=== PATIENT | female | born 1950 | race Caucasian/White ===

== ENCOUNTER 2021-05-23 13:37 | Outpatient (CLI) | payer MEDICARE | END 2021-05-23 13:38 | disposition home or self-care (01) | LOC: SCSMRI 13:37 | PROVIDERS: ATTEND Family Medicine | DX: S32.039G Unspecified fracture of third lumbar vertebra, subsequent encounter for fracture with delayed healing (principal); G89.4 Chronic pain syndrome; M47.816 Spondylosis without myelopathy or radiculopathy, lumbar region; M48.061 Spinal stenosis, lumbar region without neurogenic claudication; M43.16 Spondylolisthesis, lumbar region; M48.07 Spinal stenosis, lumbosacral region; M48.04 Spinal stenosis, thoracic region; S22.089A Unspecified fracture of T11-T12 vertebra, initial encounter for closed fracture; S32.019A Unspecified fracture of first lumbar vertebra, initial encounter for closed fracture; S32.029A Unspecified fracture of second lumbar vertebra, initial encounter for closed fracture | CPT/HCPCS: 72148 ==

== ENCOUNTER 2022-02-12 10:28 | Outpatient (CLI) | payer MEDICARE | END 2022-02-12 10:29 | disposition home or self-care (01) | LOC: BICRAD 10:28 | PROVIDERS: ATTEND Family Medicine | DX: S32.009G Unspecified fracture of unspecified lumbar vertebra, subsequent encounter for fracture with delayed healing (principal); M48.061 Spinal stenosis, lumbar region without neurogenic claudication; M47.816 Spondylosis without myelopathy or radiculopathy, lumbar region; M81.0 Age-related osteoporosis without current pathological fracture | CPT/HCPCS: 72072; 72100 ==

== ENCOUNTER 2024-05-16 12:09 | Inpatient (IN) | payer MEDICARE ==
[2024-05-16] MEDS ORDERED: Morphine 2 MG/ML VIAL ONE (12:38)
[2024-05-16 12:43] LABS: #Basophils 0.03 10x3/uL (0.0-0.2); %Basophils 0.2 % (0.0-1.0); %Eosinophils 0.3 % (0.0-10.0); %Lymphocytes 11.5 % (21.0-51.0); %Monocytes 5.5 % (0.0-10.0); %Neutrophils 82.2 % (42.0-75.0); Hematocrit 32.8 % (36.0-47.0); Mean Corpuscular HGB CONC 36.6 g/dL (32.0-36.0); Mean Corpuscular Hemoglobin 32.8 pg (27.0-31.0); Mean Corpuscular Volume 89.6 fL (78.0-98.0); Mean Platelet Volume 8.6 fL (7.4-10.4); Platelet Count 295 10x3/uL (130-400); RBC Distribution Width 11.3 % (11.5-14.5); Red Blood Cell (RBC) Count 3.66 mill/uL (4.20-5.40)
[2024-05-16 12:59] LABS: PTT 27.9 sec (22.9-36.1)
[2024-05-16 13:16] LABS: ALT (SGPT) 20 U/L (8-55); AST (SGOT) 45 U/L (5-34); Albumin 3.1 g/dL (3.4-4.8); Alkaline Phosphatase 90 U/L (40-110); Anion Gap 16 mmol/L (10-20); BUN (Urea Nitrogen) 6 mg/dL (9.8-20.1); Bilirubin, Total 0.5 mg/dL (0.2-1.2); Calc. Creatinine Clearance 0 mL/min (70-130); Carbon Dioxide 22 mmol/L (23-31); Chloride 88 mmol/L (98-107); Estimated GFR 96; Globulin 3.3 g/dL (2.4-3.5); Glucose 85 mg/dL (83-110); Protein, Total 6.4 g/dL (5.8-8.1); Sodium 122 mmol/L (136-145)
[2024-05-16] MEDS ORDERED: Ipratropium/Albuterol 3 ML NEB NEB PRN (14:05)
[2024-05-16] MEDS ORDERED: Ondansetron PF 4 MG/2 ML Vial IVP PRN (14:05)
[2024-05-16] MEDS ORDERED: Sodium Chloride 0.9% 1,000 ML IV SCH (14:15)
[2024-05-16] MEDS: Ketorolac Tromethamine 30 MG (1 mL) VIAL IVP SCH (15:39)
[2024-05-16 15:59] VITALS: BMI 18.4
[2024-05-16] MEDS: Acetaminophen 325 MG TAB PO SCH (17:38)
[2024-05-16 20:56] LABS: Anion Gap 14 mmol/L (10-20); BUN (Urea Nitrogen) 6 mg/dL (9.8-20.1); Calc. Creatinine Clearance 73 mL/min (70-130); Calcium 8.4 mg/dL (7.8-10.44); Carbon Dioxide 25 mmol/L (23-31); Chloride 86 mmol/L (98-107); Estimated GFR 98; Glucose 121 mg/dL (83-110); Potassium 3.6 mmol/L (3.5-5.1); Sodium 121 mmol/L (136-145)
[2024-05-16] MEDS: Famotidine/PF 20 mg/2ml Vial SLOW IVP SCH (21:11)
[2024-05-16] MEDS: Gabapentin 300 MG CAP PO SCH (21:12)
[2024-05-16] MEDS: Sodium Chloride 1 GM TAB PO SCH (21:57)
[2024-05-16] MEDS ORDERED: Sodium Chloride 1 GM TAB PO SCH (22:00)
[2024-05-17] MEDS: Ketorolac Tromethamine 30 MG (1 mL) VIAL IVP SCH (00:07)
[2024-05-17] MEDS: Sodium Chloride 0.9% 1,000 ML IV SCH (00:07)
[2024-05-17] MEDS: Morphine 2 MG/ML VIAL SLOW IVP PRN (04:31)
[2024-05-17 06:56] LABS: #Basophils 0.03 10x3/uL (0.0-0.2); %Basophils 0.4 % (0.0-1.0); %Eosinophils 0.4 % (0.0-10.0); %Lymphocytes 16.5 % (21.0-51.0); %Monocytes 6.9 % (0.0-10.0); %Neutrophils 75.5 % (42.0-75.0); Hematocrit 31.6 % (36.0-47.0); Hemoglobin 11.5 g/dL (12.0-16.0); Mean Corpuscular HGB CONC 36.4 g/dL (32.0-36.0); Mean Corpuscular Hemoglobin 32.3 pg (27.0-31.0); Mean Corpuscular Volume 88.8 fL (78.0-98.0); Mean Platelet Volume 9.3 fL (7.4-10.4); Platelet Count 254 10x3/uL (130-400); RBC Distribution Width 11.2 % (11.5-14.5); Red Blood Cell (RBC) Count 3.56 mill/uL (4.20-5.40)
[2024-05-17 07:03] LABS: Prothrombin Time 12.8 sec (12.0-14.7)
[2024-05-17 07:04] LABS: PTT 33.4 sec (22.9-36.1)
[2024-05-17 07:18] LABS: Hemoglobin A1c 4.7 % (4.0-6.0)
[2024-05-17 07:25] LABS: ALT (SGPT) 19 U/L (8-55); AST (SGOT) 39 U/L (5-34); Albumin 2.9 g/dL (3.4-4.8); Alkaline Phosphatase 96 U/L (40-110); Bilirubin, Direct 0.3 mg/dL (0.1-0.3); Cardiac Risk 1.6 (Less than 4.5); Cholesterol 144 mg/dl (< 200 Desired); HDL Cholesterol 92 mg/dL (>60 Neg Risk); LDL Cholesterol, Calculated 45 mg/dL; Triglycerides 35 mg/dL (Less than 150)
[2024-05-17 08:07] LABS: Anion Gap 15 mmol/L (10-20); BUN (Urea Nitrogen) 6 mg/dL (9.8-20.1); Calc. Creatinine Clearance 76 mL/min (70-130); Calcium 8.4 mg/dL (7.8-10.44); Carbon Dioxide 23 mmol/L (23-31); Chloride 86 mmol/L (98-107); Estimated GFR 99; Glucose 83 mg/dL (83-110); Magnesium 1.2 mg/dL (1.6-2.6); Potassium 3.6 mmol/L (3.5-5.1); Sodium 120 mmol/L (136-145)
[2024-05-17] MEDS: Magnesium Sulfate In Water 4 GM in Premix 1 BAG IVPB SCH (09:44)
[2024-05-17] MEDS: Thiamine 100 MG TAB PO SCH (09:44)
[2024-05-17] MEDS: Folic Acid 1 MG TAB PO SCH (09:44)
[2024-05-17] MEDS: Pantoprazole DR 40 MG TAB PO SCH (09:45)
[2024-05-17] MEDS: Sodium Chloride 1 GM TAB PO SCH (09:45)
[2024-05-17] MEDS: Amlodipine 5 MG TAB PO SCH (09:45)
[2024-05-17] MEDS: Admixture Fee 1 EACH in Sodium Chloride 3% 100 ML IVPB SCH (11:15)
[2024-05-17] MEDS: Potassium Chloride 20 MEQ in Premix 1 BAG IVPB SCH (11:39)
[2024-05-17 13:45] LABS: Albumin 3.1 g/dL (3.4-4.8); Anion Gap 12 mmol/L (10-20); BUN (Urea Nitrogen) 5 mg/dL (9.8-20.1); BUN/Creatinine Ratio 10.64; Calc. Creatinine Clearance 76 mL/min (70-130); Calcium 8.5 mg/dL (7.8-10.44); Carbon Dioxide 27 mmol/L (23-31); Chloride 85 mmol/L (98-107); Estimated GFR 99; Glucose 96 mg/dL (83-110); Potassium 3.5 mmol/L (3.5-5.1); Sodium 120 mmol/L (136-145)
[2024-05-17] MEDS ORDERED: fentaNYL PF 100 MCG/2 ML SYRINGE ONE (14:05)
[2024-05-17] MEDS ORDERED: Lidocaine 1% PF 5 ML VIAL ONE (14:06)
[2024-05-17] MEDS ORDERED: Rocuronium Bromide 10 MG/ML (10ML VIAL) ONE (14:06)
[2024-05-17] MEDS ORDERED: PROPOFOL 20 ML ONE (14:06)
[2024-05-17] MEDS ORDERED: CEFAZOLIN 2 GM VIAL ONE (14:19)
[2024-05-17] MEDS ORDERED: Sodium Chloride 0.9% 100 ML ONE (14:22)
[2024-05-17] MEDS ORDERED: SUCCINYLCHOLINE/SOD CL,ISO/PF 200 MG/10 ML SYRINGE FS ONE (14:48)
[2024-05-17] MEDS ORDERED: Ondansetron PF 4 MG/2 ML Vial ONE (14:48)
[2024-05-17] MEDS ORDERED: Glycopyrrolate 0.2 MG/ML 5 ML SYRINGE ONE (14:48)
[2024-05-17] MEDS ORDERED: Ketorolac Tromethamine 30 MG (1 mL) VIAL ONE (15:19)
[2024-05-17] MEDS ORDERED: Dexamethasone 20 MG/5 ML VIAL ONE (15:19)
[2024-05-17] MEDS ORDERED: PHENYLEPHRINE-NS 100 MCG/ML 10 ML SYRINGE ONE (15:54)
[2024-05-17] MEDS ORDERED: SUGAMMADEX SODIUM 200 MG/2 ML VIAL ONE (16:17)
[2024-05-17 16:26] VITALS: BMI 18.4
[2024-05-17] MEDS ORDERED: fentaNYL 50 mcg/mL 1 mL Vial ONE ×2 (17:00→17:48)
[2024-05-17] MEDS: ADMIXTURE FEE IVPB SCH (19:07)
[2024-05-17] MEDS: IN SODIUM CHLORIDE IVPB SCH (19:07)
[2024-05-17] MEDS: Potassium Phosphate 30 MMOL in Sodium Chloride 0.9% 250 ML 250 ML IVPB SCH ×2 (19:10→22:00)
[2024-05-17] MEDS: Sodium Chloride 3% 200 ML IVPB SCH (19:10)
[2024-05-17] MEDS: CEFAZOLIN 2 GM in Sodium Chloride 0.9% 100 ML IVPB SCH (21:16)
[2024-05-17 21:18] LABS: Anion Gap 15 mmol/L (10-20); BUN (Urea Nitrogen) 4 mg/dL (9.8-20.1); Calc. Creatinine Clearance 81 mL/min (70-130); Calcium 7.6 mg/dL (7.8-10.44); Carbon Dioxide 20 mmol/L (23-31); Chloride 89 mmol/L (98-107); Estimated GFR 100; Glucose 153 mg/dL (83-110); Potassium 3.2 mmol/L (3.5-5.1); Sodium 121 mmol/L (136-145)
[2024-05-18 06:20] LABS: #Basophils Less than 0.03 10x3/uL (0.0-0.2); #Eosinphils Less than 0.03 10x3/uL (0.0-0.7); %Basophils 0.1 % (0.0-1.0); %Monocytes 3.1 % (0.0-10.0); %Neutrophils 90.3 % (42.0-75.0); Hematocrit 24.7 % (36.0-47.0); Mean Corpuscular HGB CONC 36.4 g/dL (32.0-36.0); Mean Corpuscular Hemoglobin 33.2 pg (27.0-31.0); Mean Corpuscular Volume 91.1 fL (78.0-98.0); Mean Platelet Volume 10.1 fL (7.4-10.4); Platelet Count 251 10x3/uL (130-400); RBC Distribution Width 11.5 % (11.5-14.5); Red Blood Cell (RBC) Count 2.71 mill/uL (4.20-5.40)
[2024-05-18 06:39] LABS: Anion Gap 16 mmol/L (10-20); BUN (Urea Nitrogen) 6 mg/dL (9.8-20.1); Calc. Creatinine Clearance 69 mL/min (70-130); Calcium 7.7 mg/dL (7.8-10.44); Carbon Dioxide 18 mmol/L (23-31); Chloride 95 mmol/L (98-107); Estimated GFR 96; Glucose 112 mg/dL (83-110); Magnesium 1.8 mg/dL (1.6-2.6); Phosphorus 4.7 mg/dL (2.3-4.7); Potassium 4.4 mmol/L (3.5-5.1); Sodium 125 mmol/L (136-145)
[2024-05-18] MEDS: Sodium Bicarbonate Tab 325 MG TAB PO SCH (08:41)
[2024-05-18] MEDS: Magnesium Oxide 400 MG TAB PO SCH (08:41)
[2024-05-18] MEDS: Aspirin 81 mg Enteric Coated Tablet PO SCH ×2 (09:58→21:12)
[2024-05-19 05:52] LABS: #Basophils Less than 0.03 10x3/uL (0.0-0.2); #Eosinphils Less than 0.03 10x3/uL (0.0-0.7); %Basophils 0.1 % (0.0-1.0); %Eosinophils 0.1 % (0.0-10.0); %Lymphocytes 20.3 % (21.0-51.0); %Monocytes 9.6 % (0.0-10.0); %Neutrophils 69.5 % (42.0-75.0); Hematocrit 18.1 % (36.0-47.0); Hemoglobin 6.4 g/dL (12.0-16.0); Mean Corpuscular HGB CONC 35.4 g/dL (32.0-36.0); Mean Corpuscular Hemoglobin 32.3 pg (27.0-31.0); Mean Corpuscular Volume 91.4 fL (78.0-98.0); Mean Platelet Volume 9.5 fL (7.4-10.4); Platelet Count 213 10x3/uL (130-400); RBC Distribution Width 11.7 % (11.5-14.5); Red Blood Cell (RBC) Count 1.98 mill/uL (4.20-5.40)
[2024-05-19 06:13] LABS: Anion Gap 9 mmol/L (10-20); BUN (Urea Nitrogen) 17 mg/dL (9.8-20.1); Calc. Creatinine Clearance 46 mL/min (70-130); Calcium 8.1 mg/dL (7.8-10.44); Carbon Dioxide 24 mmol/L (23-31); Chloride 94 mmol/L (98-107); Estimated GFR 79; Glucose 95 mg/dL (83-110); Magnesium 1.7 mg/dL (1.6-2.6); Potassium 4.3 mmol/L (3.5-5.1); Sodium 123 mmol/L (136-145)
[2024-05-19] MEDS: Albumin 25% 25 GM (100 mL) BOT IVPB SCH (06:45)
[2024-05-19] MEDS: Magnesium Sulfate In Water 4 GM in Premix 1 BAG IVPB SCH (08:10)
[2024-05-19] MEDS: Multivitamin W/ Minerals 1 TAB PO SCH (09:14)
[2024-05-19 17:33] LABS: Anion Gap 16 mmol/L (10-20); BUN (Urea Nitrogen) 20 mg/dL (9.8-20.1); Calc. Creatinine Clearance 41 mL/min (70-130); Calcium 9.2 mg/dL (7.8-10.44); Carbon Dioxide 23 mmol/L (23-31); Chloride 94 mmol/L (98-107); Estimated GFR 70; Glucose 103 mg/dL (83-110); Potassium 3.8 mmol/L (3.5-5.1); Sodium 129 mmol/L (136-145)
[2024-05-19 18:34] LABS: Hematocrit 26.3 % (36.0-47.0)
[2024-05-19] MEDS: Lidocaine 4% Patch TD SCH (21:13)
[2024-05-20 06:40] LABS: #Basophils Less than 0.03 10x3/uL (0.0-0.2); %Basophils 0.2 % (0.0-1.0); %Eosinophils 3.1 % (0.0-10.0); %Lymphocytes 23.3 % (21.0-51.0); %Monocytes 8.3 % (0.0-10.0); %Neutrophils 64.7 % (42.0-75.0); Hematocrit 22.1 % (36.0-47.0); Hemoglobin 7.7 g/dL (12.0-16.0); Mean Corpuscular HGB CONC 34.8 g/dL (32.0-36.0); Mean Corpuscular Volume 89.1 fL (78.0-98.0); Mean Platelet Volume 9.6 fL (7.4-10.4); Platelet Count 216 10x3/uL (130-400); RBC Distribution Width 16.8 % (11.5-14.5); Red Blood Cell (RBC) Count 2.48 mill/uL (4.20-5.40)
[2024-05-20 07:10] LABS: Anion Gap 9 mmol/L (10-20); BUN (Urea Nitrogen) 22 mg/dL (9.8-20.1); Calc. Creatinine Clearance 54 mL/min (70-130); Calcium 8.5 mg/dL (7.8-10.44); Carbon Dioxide 28 mmol/L (23-31); Chloride 94 mmol/L (98-107); Estimated GFR 91; Glucose 74 mg/dL (83-110); Potassium 4.3 mmol/L (3.5-5.1); Sodium 127 mmol/L (136-145)
[2024-05-20] MEDS: Transdermal Patch Removal TOP SCH (12:49)
[2024-05-20 14:46] LABS: Phosphorus 1.2 mg/dL (2.3-4.7)
[2024-05-20 16:47] LABS: Hematocrit 25.2 % (36.0-47.0); Hemoglobin 8.8 g/dL (12.0-16.0)
[2024-05-20] MEDS: Sodium Phosphate 30 MMOL in Sodium Chloride 0.9% 250 ML 250 ML IVPB SCH (18:15)
[2024-05-20] MEDS: Senokot S 8.6-50 MG TAB PO SCH (20:59)
[2024-05-21 05:41] LABS: #Basophils Less than 0.03 10x3/uL (0.0-0.2); %Basophils 0.3 % (0.0-1.0); %Eosinophils 4.5 % (0.0-10.0); %Lymphocytes 25.5 % (21.0-51.0); %Monocytes 11.4 % (0.0-10.0); Hematocrit 22.3 % (36.0-47.0); Hemoglobin 7.6 g/dL (12.0-16.0); Mean Corpuscular HGB CONC 34.1 g/dL (32.0-36.0); Mean Corpuscular Hemoglobin 30.3 pg (27.0-31.0); Mean Corpuscular Volume 88.8 fL (78.0-98.0); Platelet Count 238 10x3/uL (130-400); RBC Distribution Width 16.8 % (11.5-14.5); Red Blood Cell (RBC) Count 2.51 mill/uL (4.20-5.40)
[2024-05-21 06:26] LABS: Albumin 2.3 g/dL (3.4-4.8); Anion Gap 12 mmol/L (10-20); BUN (Urea Nitrogen) 21 mg/dL (9.8-20.1); BUN/Creatinine Ratio 36.84; Calc. Creatinine Clearance 63 mL/min (70-130); Calcium 8.5 mg/dL (7.8-10.44); Carbon Dioxide 29 mmol/L (23-31); Chloride 94 mmol/L (98-107); Estimated GFR 94; Glucose 80 mg/dL (83-110); Magnesium 1.5 mg/dL (1.6-2.6); Phosphorus 3.2 mg/dL (2.3-4.7); Potassium 4.3 mmol/L (3.5-5.1); Sodium 131 mmol/L (136-145)
[2024-05-21 07:39] LABS: Iron 17 ug/dL (50-170); Iron Binding Capacity, Total 155 mcg/dL (265-497)
[2024-05-21] MEDS: Magnesium Sulfate In Water 4 GM in Premix 1 BAG IVPB SCH (08:51)
[2024-05-21 15:14] VITALS: BP 124/82; TEMP 97.7
== END 2024-05-21 18:16 | disposition home or self-care (01) | DRG 522 ==
LOC: ERS 12:09 → SJJU 15:15
PROVIDERS: ADMIT Surgery; ATTEND Surgery
PROC: 0SRR0J9 Replacement of Right Hip Joint, Femoral Surface with Synthetic Substitute, Cemented, Open Approach (ICD-10-PCS; principal; 2024-05-17)
PROC: 30233K1 Transfusion of Nonautologous Frozen Plasma into Peripheral Vein, Percutaneous Approach (ICD-10-PCS; 2024-05-19)
PROC: 30233N1 Transfusion of Nonautologous Red Blood Cells into Peripheral Vein, Percutaneous Approach (ICD-10-PCS; 2024-05-19)
DX: S72.011A Unspecified intracapsular fracture of right femur, initial encounter for closed fracture (principal); R64 Cachexia; Z68.1 Body mass index [BMI] 19.9 or less, adult; D62 Acute posthemorrhagic anemia; E22.2 Syndrome of inappropriate secretion of antidiuretic hormone; E44.0 Moderate protein-calorie malnutrition; W18.2XXA Fall in (into) shower or empty bathtub, initial encounter; I10 Essential (primary) hypertension; M19.90 Unspecified osteoarthritis, unspecified site; Z96.662 Presence of left artificial ankle joint; F10.10 Alcohol abuse, uncomplicated; K21.9 Gastro-esophageal reflux disease without esophagitis; G89.29 Other chronic pain; E87.6 Hypokalemia; E83.42 Hypomagnesemia; Z96.661 Presence of right artificial ankle joint; R26.89 Other abnormalities of gait and mobility; D72.829 Elevated white blood cell count, unspecified; E83.39 Other disorders of phosphorus metabolism; E83.51 Hypocalcemia; I95.9 Hypotension, unspecified; M81.0 Age-related osteoporosis without current pathological fracture; Y90.3 Blood alcohol level of 60-79 mg/100 ml; Y93.89 Activity, other specified; Y92.091 Bathroom in other non-institutional residence as the place of occurrence of the external cause; Z79.899 Other long term (current) drug therapy; Z90.710 Acquired absence of both cervix and uterus
CPT/HCPCS: 36415; 36430; 70450; 71045; 72170; 76705; 80048; 80053; 80061; 80069; 80076; 80307; 82306; 82533; 82728; 83036; 83540; 83550; 83735; 83930; 83935; 84100; 84300; 84443; 85025; 85610; 85730; 86850; 86900; 86901; 93005; 96374; C1713; C1776; J1100; J1885; J2272; J2405; J2704; J3010; J3475; J3480; J3490; J7030; J7050; J7131; P9016; P9047; P9059

== ENCOUNTER 2024-06-22 20:44 | Inpatient (IN) | payer MEDICARE ==
[~2024-06-22 20:44] MED LIST: Iopamidol-370 76% 500 ML MDV (1 ML CHARGE) ONE
[2024-06-22 22:45] LABS: #Basophils Less than 0.03 10x3/uL (0.0-0.2); #Eosinphils Less than 0.03 10x3/uL (0.0-0.7); %Basophils 0.2 % (0.0-1.0); %Eosinophils 0.2 % (0.0-10.0); %Lymphocytes 11.8 % (21.0-51.0); %Monocytes 9.3 % (0.0-10.0); %Neutrophils 78.1 % (42.0-75.0); Hematocrit 21.9 % (36.0-47.0); Hemoglobin 7.7 g/dL (12.0-16.0); Mean Corpuscular HGB CONC 35.2 g/dL (32.0-36.0); Mean Corpuscular Hemoglobin 30.4 pg (27.0-31.0); Mean Corpuscular Volume 86.6 fL (78.0-98.0); Mean Platelet Volume 8.3 fL (7.4-10.4); Platelet Count 262 10x3/uL (130-400); RBC Distribution Width 13.9 % (11.5-14.5); Red Blood Cell (RBC) Count 2.53 mill/uL (4.20-5.40)
[2024-06-22 23:14] LABS: Troponin I Less than 0.010 ng/mL (< 0.028)
[2024-06-22 23:27] LABS: ALT (SGPT) 13 U/L (8-55); AST (SGOT) 36 U/L (5-34); Alkaline Phosphatase 91 U/L (40-110); Anion Gap 12 mmol/L (10-20); BUN (Urea Nitrogen) 6 mg/dL (9.8-20.1); Calc. Creatinine Clearance 0 mL/min (70-130); Calcium 9.1 mg/dL (7.8-10.44); Carbon Dioxide 25 mmol/L (23-31); Chloride 81 mmol/L (98-107); Estimated GFR 96; Globulin 3.6 g/dL (2.4-3.5); Glucose 104 mg/dL (83-110); Potassium 4.3 mmol/L (3.5-5.1); Protein, Total 6.6 g/dL (5.8-8.1); Sodium 114 mmol/L (136-145)
[2024-06-22] MEDS ORDERED: Morphine 4 MG/ML VIAL ONE (23:41)
[2024-06-22] MEDS ORDERED: Ondansetron PF 4 MG/2 ML Vial ONE (23:41)
[2024-06-23] MEDS ORDERED: Furosemide 20 MG (2 mL) VIAL ONE (00:10)
[2024-06-23] MEDS ORDERED: fentaNYL 50 mcg/mL 1 mL Vial ONE (01:11)
[2024-06-23] MEDS ORDERED: Acetaminophen 325 MG TAB PO PRN (01:27)
[2024-06-23] MEDS ORDERED: Acetaminophen 650 MG Suppository PR PRN (01:27)
[2024-06-23 01:39] LABS: Bacteria/HPF None Seen HPF (None Seen); Bilirubin Negative (Negative); Blood, Urine Negative (Negative); CAUTI Indications for Culture Fever or rigors; Clarity Turbid (Clear); Glucose, Urine (Dipstick) Normal (Negative); Ketone, Urine Trace mg/dL (Negative); Leukocyte Negative Leu/uL (Negative); Nitrite Negative (Negative); Protein, Urine (Dipstick) Negative (Neg-Trace); RBC/HPF 0-3 HPF (0-3); Specific Gravity, Urine 1.011 (1.002-1.036); Squamous Epithelial 0-3 HPF (0-3); Urobilinogen Normal mg/dL (Less than 2); pH, Urine 7.5 (5.0-9.0)
[2024-06-23 01:40] LABS: Urine Culture Reflex No No
[2024-06-23 02:04] LABS: Influenza A by NAA Not Detected (NotDetected); Influenza B by NAA Not Detected (NotDetected); SARS-CoV-2 NAA Rapid Test Not Detected (NotDetected)
[2024-06-23 03:21] LABS: Magnesium 1.5 mg/dL (1.6-2.6); Phosphorus 2.3 mg/dL (2.3-4.7)
[2024-06-23] MEDS ORDERED: traMADol HCl 50 MG TAB ONE ×2 (04:01→13:36)
[2024-06-23] MEDS: traMADol HCl 50 MG TAB PO PRN (04:04)
[2024-06-23 04:27] LABS: #Basophils Less than 0.03 10x3/uL (0.0-0.2); #Eosinphils Less than 0.03 10x3/uL (0.0-0.7); %Basophils 0.1 % (0.0-1.0); %Eosinophils 0.1 % (0.0-10.0); %Lymphocytes 13.6 % (21.0-51.0); %Monocytes 9.1 % (0.0-10.0); %Neutrophils 76.8 % (42.0-75.0); Hematocrit 24.7 % (36.0-47.0); Hemoglobin 9.1 g/dL (12.0-16.0); Mean Corpuscular HGB CONC 36.8 g/dL (32.0-36.0); Mean Corpuscular Hemoglobin 30.2 pg (27.0-31.0); Mean Corpuscular Volume 82.1 fL (78.0-98.0); Mean Platelet Volume 8.8 fL (7.4-10.4); Platelet Count 305 10x3/uL (130-400); RBC Distribution Width 13.5 % (11.5-14.5); Red Blood Cell (RBC) Count 3.01 mill/uL (4.20-5.40)
[2024-06-23 04:49] LABS: Chloride 79 mmol/L (98-107); Potassium 3.7 mmol/L (3.5-5.1)
[2024-06-23 04:50] LABS: Calcium 9.4 mg/dL (7.8-10.44)
[2024-06-23 04:51] LABS: Glucose 111 mg/dL (83-110)
[2024-06-23 04:52] LABS: Anion Gap 14 mmol/L (10-20); Carbon Dioxide 24 mmol/L (23-31)
[2024-06-23 04:54] LABS: Calc. Creatinine Clearance 0 mL/min (70-130); Estimated GFR 95
[2024-06-23 04:55] LABS: BUN (Urea Nitrogen) 6 mg/dL (9.8-20.1)
[2024-06-23 05:13] LABS: Sodium 113 mmol/L (136-145)
[2024-06-23 05:54] VITALS: BMI 18.1
[2024-06-23] MEDS ORDERED: Admixture Fee 1 EACH in Sodium Chloride 3% 100 ML IVPB SCH (09:00)
[2024-06-23] MEDS ORDERED: Enoxaparin 40 MG (0.4 mL) SYRINGE ONE (09:21)
[2024-06-23 09:26] LABS: Anion Gap 14 mmol/L (10-20); BUN (Urea Nitrogen) 7 mg/dL (9.8-20.1); Calc. Creatinine Clearance 69 mL/min (70-130); Calcium 9.4 mg/dL (7.8-10.44); Carbon Dioxide 25 mmol/L (23-31); Chloride 78 mmol/L (98-107); Estimated GFR 95; Glucose 103 mg/dL (83-110); Potassium 3.9 mmol/L (3.5-5.1); Sodium 113 mmol/L (136-145)
[2024-06-23] MEDS: Sodium Chloride 3% 100 ML in Admixture Fee 1 EACH IVPB SCH (10:10)
[2024-06-23] MEDS: Enoxaparin 40 MG (0.4 mL) SYRINGE SC SCH (10:11)
[2024-06-23] MEDS: Magnesium Sulfate In Water 4 GM in Premix 1 BAG IVPB SCH (11:08)
[2024-06-23] MEDS: Sodium Chloride 1 GM TAB PO SCH ×2 (11:14→17:21)
[2024-06-23 11:46] LABS: Anion Gap 14 mmol/L (10-20); BUN (Urea Nitrogen) 6 mg/dL (9.8-20.1); Calc. Creatinine Clearance 74 mL/min (70-130); Carbon Dioxide 22 mmol/L (23-31); Chloride 81 mmol/L (98-107); Estimated GFR 96; Glucose 97 mg/dL (83-110); Potassium 3.5 mmol/L (3.5-5.1); Sodium 113 mmol/L (136-145)
[2024-06-23 16:57] LABS: Anion Gap 14 mmol/L (10-20); BUN (Urea Nitrogen) 6 mg/dL (9.8-20.1); Calc. Creatinine Clearance 75 mL/min (70-130); Calcium 8.7 mg/dL (7.8-10.44); Carbon Dioxide 25 mmol/L (23-31); Chloride 79 mmol/L (98-107); Estimated GFR 97; Glucose 113 mg/dL (83-110); Potassium 3.7 mmol/L (3.5-5.1); Sodium 114 mmol/L (136-145)
[2024-06-23] MEDS ORDERED: Lisinopril 20 MG TAB ONE (17:18)
[2024-06-23] MEDS ORDERED: Metoprolol Tartrate 50 MG TAB ONE (17:18)
[2024-06-23] MEDS: Lisinopril 20 MG TAB PO SCH (17:58)
[2024-06-23] MEDS: Magnesium Oxide 400 MG TAB PO SCH (19:36)
[2024-06-23] MEDS: ADMIXTURE FEE IVPB SCH (19:36)
[2024-06-23] MEDS: IN SODIUM CHLORIDE IVPB SCH (19:36)
[2024-06-23] MEDS: Sodium Chloride 3% 200 ML IVPB SCH (19:37)
[2024-06-23 19:52] LABS: Anion Gap 12 mmol/L (10-20); BUN (Urea Nitrogen) 7 mg/dL (9.8-20.1); Calc. Creatinine Clearance 77 mL/min (70-130); Calcium 8.6 mg/dL (7.8-10.44); Carbon Dioxide 25 mmol/L (23-31); Chloride 79 mmol/L (98-107); Estimated GFR 97; Glucose 128 mg/dL (83-110); Potassium 3.3 mmol/L (3.5-5.1); Sodium 113 mmol/L (136-145)
[2024-06-23] MEDS: Potassium Chloride 20 MEQ TAB PO SCH (21:23)
[2024-06-24 00:08] LABS: Anion Gap 14 mmol/L (10-20); BUN (Urea Nitrogen) 7 mg/dL (9.8-20.1); Calc. Creatinine Clearance 82 mL/min (70-130); Calcium 8.6 mg/dL (7.8-10.44); Carbon Dioxide 21 mmol/L (23-31); Chloride 83 mmol/L (98-107); Estimated GFR 99; Glucose 117 mg/dL (83-110); Sodium 115 mmol/L (136-145)
[2024-06-24 01:21] LABS: Magnesium 2.1 mg/dL (1.6-2.6)
[2024-06-24] MEDS: Potassium Chloride 20 MEQ TAB PO SCH (02:15)
[2024-06-24] MEDS: Potassium Chloride 10 MEQ TAB PO SCH ×2 (02:42→11:01)
[2024-06-24 05:13] LABS: Anion Gap 10 mmol/L (10-20); BUN (Urea Nitrogen) 8 mg/dL (9.8-20.1); Calc. Creatinine Clearance 80 mL/min (70-130); Calcium 8.7 mg/dL (7.8-10.44); Carbon Dioxide 26 mmol/L (23-31); Chloride 83 mmol/L (98-107); Estimated GFR 98; Glucose 115 mg/dL (83-110); Potassium 3.4 mmol/L (3.5-5.1); Sodium 116 mmol/L (136-145)
[2024-06-24 06:50] LABS: Anion Gap 9 mmol/L (10-20); BUN (Urea Nitrogen) 8 mg/dL (9.8-20.1); Calc. Creatinine Clearance 82 mL/min (70-130); Calcium 8.7 mg/dL (7.8-10.44); Carbon Dioxide 28 mmol/L (23-31); Chloride 84 mmol/L (98-107); Estimated GFR 99; Glucose 113 mg/dL (83-110); Phosphorus 2.6 mg/dL (2.3-4.7); Sodium 117 mmol/L (136-145)
[2024-06-24] MEDS ORDERED: Potassium Chloride 20 MEQ TAB PO SCH (08:00)
[2024-06-24] MEDS: Prochlorperazine Edisylate 10 MG in Sodium Chloride 0.9% 50 ML IVPB SCH (10:23)
[2024-06-24] MEDS: Lisinopril 20 MG TAB PO SCH (11:01)
[2024-06-24] MEDS: Amlodipine 5 MG TAB PO SCH (11:09)
[2024-06-24 12:02] LABS: Anion Gap 13 mmol/L (10-20); BUN (Urea Nitrogen) 8 mg/dL (9.8-20.1); Calc. Creatinine Clearance 80 mL/min (70-130); Carbon Dioxide 24 mmol/L (23-31); Chloride 84 mmol/L (98-107); Estimated GFR 98; Glucose 122 mg/dL (83-110); Potassium 3.8 mmol/L (3.5-5.1); Sodium 117 mmol/L (136-145)
[2024-06-24 12:33] VITALS: BMI 18.1
[2024-06-24] MEDS: Prochlorperazine Maleate 5 MG TAB PO SCH (14:37)
[2024-06-24] MEDS: traMADol HCl 50 MG TAB PO PRN (15:11)
[2024-06-24] MEDS: Sodium Chloride 3% 500 ML IVPB SCH (15:41)
[2024-06-24] MEDS: Potassium Chloride 20 MEQ in Premix 1 BAG IVPB SCH (17:28)
[2024-06-24 17:33] LABS: Anion Gap 12 mmol/L (10-20); BUN (Urea Nitrogen) 9 mg/dL (9.8-20.1); Calc. Creatinine Clearance 80 mL/min (70-130); Carbon Dioxide 24 mmol/L (23-31); Chloride 86 mmol/L (98-107); Estimated GFR 98; Glucose 134 mg/dL (83-110); Potassium 3.3 mmol/L (3.5-5.1); Sodium 119 mmol/L (136-145)
[2024-06-24 20:20] LABS: Anion Gap 11 mmol/L (10-20); BUN (Urea Nitrogen) 9 mg/dL (9.8-20.1); Calc. Creatinine Clearance 70 mL/min (70-130); Carbon Dioxide 24 mmol/L (23-31); Chloride 88 mmol/L (98-107); Estimated GFR 95; Glucose 164 mg/dL (83-110); Potassium 3.5 mmol/L (3.5-5.1); Sodium 119 mmol/L (136-145)
[2024-06-24 23:30] LABS: Anion Gap 12 mmol/L (10-20); BUN (Urea Nitrogen) 9 mg/dL (9.8-20.1); Calc. Creatinine Clearance 75 mL/min (70-130); Calcium 8.8 mg/dL (7.8-10.44); Carbon Dioxide 24 mmol/L (23-31); Chloride 91 mmol/L (98-107); Estimated GFR 97; Glucose 154 mg/dL (83-110); Potassium 3.7 mmol/L (3.5-5.1); Sodium 123 mmol/L (136-145)
[2024-06-25] MEDS: Prochlorperazine Maleate 5 MG TAB PO PRN (04:20)
[2024-06-25] MEDS: hydrALAZINE 20 MG/ML VIAL SLOW IVP PRN (04:57)
[2024-06-25 07:17] LABS: Albumin 2.8 g/dL (3.4-4.8); Anion Gap 14 mmol/L (10-20); BUN (Urea Nitrogen) 9 mg/dL (9.8-20.1); Calc. Creatinine Clearance 85 mL/min (70-130); Calcium 8.9 mg/dL (7.8-10.44); Carbon Dioxide 27 mmol/L (23-31); Chloride 88 mmol/L (98-107); Estimated GFR 100; Glucose 155 mg/dL (83-110); Phosphorus 1.8 mg/dL (2.3-4.7); Sodium 126 mmol/L (136-145)
[2024-06-25] MEDS ORDERED: Potassium Phosphate 30 MMOL in Sodium Chloride 0.9% 250 ML 250 ML IVPB SCH (08:00)
[2024-06-25 08:20] LABS: Magnesium 1.7 mg/dL (1.6-2.6)
[2024-06-25] MEDS: Thiamine 100 MG TAB PO SCH (08:49)
[2024-06-25] MEDS: Amlodipine 5 MG TAB PO SCH (08:49)
[2024-06-25] MEDS: Potassium Chloride 20 MEQ TAB PO SCH (08:50)
[2024-06-25] MEDS: Magnesium 2 GM/50 ML(in water) 2 GM in Premix 1 BAG IVPB SCH (08:52)
[2024-06-25] MEDS: Potassium Phosphate 30 MMOL in Sodium Chloride 0.9% 250 ML 250 ML IVPB SCH (10:26)
[2024-06-25] MEDS ORDERED: Iopamidol 370 76% 100 ML VIAL ONE (14:13)
[2024-06-25] MEDS: Dextrose 5%-Lactated Ringers 1,000 ML IV SCH (17:34)
[2024-06-25 17:36] LABS: Albumin 2.7 g/dL (3.4-4.8); Anion Gap 16 mmol/L (10-20); BUN (Urea Nitrogen) 17 mg/dL (9.8-20.1); BUN/Creatinine Ratio 36.17; Calc. Creatinine Clearance 82 mL/min (70-130); Calcium 9.1 mg/dL (7.8-10.44); Carbon Dioxide 30 mmol/L (23-31); Chloride 87 mmol/L (98-107); Estimated GFR 99; Glucose 128 mg/dL (83-110); Phosphorus 3.7 mg/dL (2.3-4.7); Potassium 3.7 mmol/L (3.5-5.1); Sodium 129 mmol/L (136-145)
[2024-06-25 20:59] VITALS: BP 134/92; TEMP 97.6
[2024-06-25] MEDS ORDERED: Calcium Chloride 1 GM/10 ML Abboject SYRINGE ONE (22:07)
[2024-06-25] MEDS ORDERED: Amiodarone 150 MG/3 ML VIAL ONE (22:07)
[2024-06-25] MEDS ORDERED: EPINEPHrine 1 MG/10 ML Abboject SYRINGE ONE (22:07)
[2024-06-25] MEDS ORDERED: Sodium Bicarb 50 MEQ/50 ML Abboject 8.4% SYRINGE ONE (22:07)
== END 2024-06-26 01:32 | disposition expired | DRG 644 ==
LOC: ERS 20:44 → ERHOLD 06-23 01:27 → 2NO 06-23 18:22
PROVIDERS: ADMIT Family Medicine; ATTEND Internal Medicine
PROC: 3E033XZ Introduction of Vasopressor into Peripheral Vein, Percutaneous Approach (ICD-10-PCS; principal; 2024-06-25)
DX: E22.2 Syndrome of inappropriate secretion of antidiuretic hormone (principal); E44.0 Moderate protein-calorie malnutrition; J90 Pleural effusion, not elsewhere classified; S22.31XA Fracture of one rib, right side, initial encounter for closed fracture; S72.402A Unspecified fracture of lower end of left femur, initial encounter for closed fracture; Z68.1 Body mass index [BMI] 19.9 or less, adult; K56.7 Ileus, unspecified; K31.1 Adult hypertrophic pyloric stenosis; I10 Essential (primary) hypertension; K44.9 Diaphragmatic hernia without obstruction or gangrene; R11.2 Nausea with vomiting, unspecified; E86.0 Dehydration; M81.0 Age-related osteoporosis without current pathological fracture; E87.6 Hypokalemia; E83.42 Hypomagnesemia; E83.39 Other disorders of phosphorus metabolism; K31.84 Gastroparesis; M19.90 Unspecified osteoarthritis, unspecified site; M54.9 Dorsalgia, unspecified; G89.29 Other chronic pain; Z96.661 Presence of right artificial ankle joint; Z96.662 Presence of left artificial ankle joint; Z96.642 Presence of left artificial hip joint; R09.02 Hypoxemia; Z90.710 Acquired absence of both cervix and uterus; Z98.890 Other specified postprocedural states; W19.XXXA Unspecified fall, initial encounter
CPT/HCPCS: 36415; 36416; 71045; 71275; 74018; 74177; 80048; 80053; 80069; 81001; 82570; 83605; 83735; 83880; 83930; 83935; 84100; 84300; 84484; 85025; 87040; 93005; 93010; 93306; 96374; 96375; J0171; J0282; J0360; J0780; J1650; J1940; J2272; J2405; J3010; J3475; J3480; J7050; J7131; Q0164; Q9967